=== PATIENT | male | born 1950 | race Caucasian/White ===

== ENCOUNTER 2021-06-20 18:35 | Emergency (ER) | payer MEDICARE, OTHER ==
[~2021-06-20] VITALS: Ht 172.7 cm; Wt 93.0 kg
--- NOTE | 2021-06-20 18:42 | NUR ---
PT BIBRA FROM HOME C/O WORSENING L FLANK PAIN, DYSURIA FOR DAYS NOW AND IS WORST TODAY. ALSO C/O NAUSEA AND VOMITING. PT AWAITING MD JOHNSON.
--- NOTE | 2021-06-20 19:16 | NUR ---
REPORT TO RHONDA COON FOR AYLEEN.
[2021-06-20] MEDS ORDERED: IV NS 0.9% 1,000 ML BAG IV ONE (19:30)
[2021-06-20] MEDS ORDERED: KETOROLAC TROMETHAMINE INJ 30 MG/ML VIAL ONE (19:30)
[2021-06-20] MEDS ORDERED: KETOROLAC TROMETHAMINE INJ 30 MG/ML VIAL IV ONE (19:30)
--- NOTE | 2021-06-20 19:39 | NUR ---
BLOOD SENT TO LAB
--- NOTE | 2021-06-20 19:55 | NUR ---
ANOUSH DAUGHTER [phone]
--- NOTE | 2021-06-20 19:58 | NUR ---
TAKEN TO RADIOLOGY
--- NOTE | 2021-06-20 20:11 | NUR ---
CALLED [facility] READ ON IMAGE
[2021-06-20] MEDS ORDERED: ESMOLOL IVPB PREMIX 250 ML IV ONE ×2 (20:13→22:39)
--- NOTE | 2021-06-20 20:14 | NUR ---
CALLED [facility], FAXED CLINICALS TO [facility]
--- NOTE | 2021-06-20 20:15 | NUR ---
PT PLACED ON 2L O2 VIA NC FOR COMFORT. PT SATURATING 99%
--- NOTE | 2021-06-20 20:17 | NUR ---
CALLED [facility] SPOKE TO TRACY, WILL CALL BACK WITH INSPECTION CLERK VASCULAR SURGEON
--- NOTE | 2021-06-20 20:23 | NUR ---
STARTED ESMOLOL AT 50MCG/KG/MIN 73HR 129/92 BP
[2021-06-20 20:30] LABS: CALCIUM, SERUM 8.6 mg/dL (8.5-10.1); CARBON DIOXIDE 28 mmol/L (21-32); CHLORIDE 103 mmol/L (98-107); CREATININE 1.4 mg/dL (0.6-1.3); GLUCOSE 161 mg/dL (74-106); POTASSIUM 3.7 mmol/L (3.5-5.1); SODIUM SERUM 137 mmol/L (136-145); UREA NITROGEN, BLOOD 23 mg/dL (7-18)
[2021-06-20] MEDS ORDERED: ESMOLOL IVPB PREMIX 2,500 MG in PREMIX 1 EA IV PRN (20:30)
[2021-06-20] MEDS ORDERED: MORPHINE SULFATE INJ 2 MG/ML DISP.SYRIN IV ONE ×2 (20:30→22:00)
--- NOTE | 2021-06-20 20:30 | NUR ---
ESMOLOL TITRATED TO 100MCG/KG/MIN 133/91 BP HR 74HR
[2021-06-20 20:36] LABS: ALANINE AMINOTRANSFERASE 36 U/L (12-78); ALBUMIN 3.6 g/dL (3.4-5.0); ALKALINE PHOSPHATASE 76 U/L (46-116); ASPARTATE AMINOTRANSFERASE 21 U/L (15-37); BILIRUBIN,DIRECT 0.1 mg/dL (0.0-0.2); BILIRUBIN,TOTAL 0.4 mg/dL (0.2-1.0); LIPASE 115 U/L (73-393); TOTAL PROTEIN, SERUM 7.2 g/dL (6.4-8.2)
[2021-06-20] MEDS ORDERED: MORPHINE SULFATE INJ 4 MG/ML DISP.SYRIN ONE ×2 (20:37→21:45)
--- NOTE | 2021-06-20 20:40 | NUR ---
ESMOLOL TITRATED TO 150MCG/KG/MIN 128/65BP HR 87
--- NOTE | 2021-06-20 20:43 | NUR ---
COVID SWAB SENT TO LAB
--- NOTE | 2021-06-20 21:00 | NUR ---
CALLED [facility] AT [facility] [phone] SAAVEDRA SPEAKING WITH DR ASHLEY
[2021-06-20 21:04] LABS: BASOPHILS % (AUTO) 0.4 % (0.0-2.0); EOSINOPHILS % (AUTO) 0.7 % (0.0-6.0); HEMATOCRIT 40 % (39-51); HEMOGLOBIN 13.5 g/dL (13.5-17.5); LYMPHOCYTES # (AUTO) 2.8 K/uL (0.8-4.8); LYMPHOCYTES % (AUTO) 25.7 % (20.0-44.0); MEAN CORPUSCULAR HGB CONC 34 g/dl (31.0-36.0); MEAN CORPUSCULAR VOLUME 88 fL (80-96); MONOCYTES # (AUTO) 0.7 K/uL (0.1-1.30); MONOCYTES % (AUTO) 6.1 % (2.0-12.0); NEUTROPHILS # (AUTO) 7.2 K/uL (1.8-8.9); NEUTROPHILS % (AUTO) 67.1 % (43.0-81.0); PLATELET COUNT (AUTO) 264 K/uL (150-450); RED BLOOD CELL COUNT(AUTO) 4.55 MIL/uL (4.5-6.0); WHITE BLOOD COUNT (AUTO) 10.8 K/uL (4.3-11.0)
[2021-06-20] MEDS ORDERED: IOHEXOL-350 100 ML VIAL IV ONE (21:11)
[2021-06-20] MEDS ORDERED: IV NS 0.9% 250 ML IV ONE (21:11)
[2021-06-20] MEDS ORDERED: CT SWABBABLE VALVE TRANS SET 1 EA INFUS.SET MC ONE (21:11)
--- NOTE | 2021-06-20 21:50 | NUR ---
ESMOLOL TITRATED TO 200MCG/KG/MIN 131/90 BP 81HR
--- NOTE | 2021-06-20 21:57 | NUR ---
[facility] ETA 30MIN
--- NOTE | 2021-06-20 21:57 | NUR ---
Note apolonia in EDM - 06/20/21 at 2203 by JAC CALL FROM [facility]. ACCEPTED TO [facility] ROOM [id number]. # FOR REPORT [phone]. [facility] ETA 30 MIN.
--- NOTE | 2021-06-20 22:03 | NUR ---
CALL FROM [facility]. ACCEPTED TO [facility] ROOM 7303. # FOR REPORT [phone]. [facility] ETA 30 MIN.
--- NOTE | 2021-06-20 22:03 | NUR ---
ACCEPTED BY DR REGIGE GRULLON
--- NOTE | 2021-06-20 22:06 | NUR ---
GAVE REPORT TO JAYMIE RYAN FOR AYLEEN
[2021-06-20] MEDS ORDERED: ONDANSETRON HCL/PF 4 MG/2 ML VIAL ONE (22:41)
--- NOTE | 2021-06-20 22:43 | NUR ---
GAVE REPORT TO EDDIE COON FROM [facility]
[2021-06-20 22:45] VITALS: BP 120/76
[2021-06-20] MEDS ORDERED: ONDANSETRON HCL/PF - ER 4 MG/2 ML VIAL IV ONE (23:00)
[2021-06-20 23:59] LABS: BILIRUBIN,URINE NEGATIVE (NEGATIVE); COLOR,URINE YELLOW (YELLOW); LEUKOCYTE ESTERASE ,URINE NEGATIVE (NEGATIVE); NITRITE, URINE NEGATIVE (NEGATIVE); PROTEIN,URINE NEGATIVE (NEGATIVE); UGLUCOSE NEGATIVE (NEGATIVE); UROBILINOGEN,URINE 0.2 EU/dL (0.2)
[2021-06-21 00:02] LABS: RBC,URINE 0-2 /HPF (0-2)
[2021-06-21 00:03] LABS: BACTERIA,URINE None seen /HPF (None Seen); SQUAMOUS EPITHELIAL CELL,UR Few /HPF (None Seen)
== END 2021-06-20 22:43 | disposition short-term general hospital (02) ==
LOC: ER 18:44
DX: I71.3 Abdominal aortic aneurysm, ruptured (principal); I10 Essential (primary) hypertension; E78.00 Pure hypercholesterolemia, unspecified; Z20.822 Contact with and (suspected) exposure to COVID-19; K80.20 Calculus of gallbladder without cholecystitis without obstruction
CPT/HCPCS: 36415; 71275; 74174; 74176; 80048; 80076; 81001; 83690; 85025; 85730; 86850; 87426; 96361; 96365; 96374; 96375; 96376; 99291; 99292; J1885; J2270 ×2; J2405; J3490; J7030; J7050; Q9967; C9803